=== PATIENT | female | born 1965 | race Caucasian/White ===

== ENCOUNTER 2016-05-21 16:10 | Emergency (ER) | payer MEDICAID, MEDICARE, OTHER ==
[~2016-05-21] VITALS: Ht 157.5 cm; Wt 61.4 kg
[2016-05-21 16:28] VITALS: BP 126/85; PULSE 80; RESP 16; O2SAT 79
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
[2016-05-21] MEDS ORDERED: HYDROcodone-APAP 5-325 mg Tablet PO ONE (17:20)
[2016-05-21] MEDS ORDERED: Albuterol-Ipratropium 3 mL Inhalation Solution NEB ONE (17:20)
[2016-05-21 18:12] VITALS: PULSE 85; RESP 20; O2SAT 94
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
[2016-05-21 19:11] VITALS: BP 142/94; PULSE 86; RESP 16; O2SAT 99
== END 2016-05-21 19:12 | disposition home or self-care (01) ==
LOC: SED 16:10
DX: S06.0X0A Concussion without loss of consciousness, initial encounter (principal); T76.11XA Adult physical abuse, suspected, initial encounter; Y04.8XXA Assault by other bodily force, initial encounter; Y92.009 Unspecified place in unspecified non-institutional (private) residence as the place of occurrence of the external cause; Y93.89 Activity, other specified; Y99.8 Other external cause status; M54.2 Cervicalgia; G89.29 Other chronic pain; J45.909 Unspecified asthma, uncomplicated; F17.200 Nicotine dependence, unspecified, uncomplicated
CPT/HCPCS: 70450; 72125; 94664; 99285; J7620